=== PATIENT | female | born 1955 | race African-American/Black ===

== ENCOUNTER 2017-09-13 19:31 | Inpatient (IN) | payer MEDICARE, MEDICAID ==
[~2017-09-13] VITALS: Ht 167.6 cm; Wt 67.6 kg
[2017-09-13] MEDS ORDERED: NITROGLYCERIN OINT 1GM/INCH UDPKT TD ONE (22:45)
[2017-09-13] MEDS ORDERED: FUROSEMIDE 40MG/4ML VIAL IV ONE (22:45)
[2017-09-13 23:15] LABS: BASOPHILS % 0.7 % (0.0-2.0); EOSINOPHILS % 1.3 % (0.0-5.0); HEMATOCRIT. 33.4 % (36.0-48.0); HEMOGLOBIN. 11.1 g/dL (12.0-16.0); LYMPHOCYTES % 24.7 % (20.0-50.0); MEAN CORPUSCULAR HEMOGLOBIN 29.9 pg (28.0-32.0); MEAN CORPUSCULAR VOLUME 89.8 fL (81.0-99.0); MEAN PLATELET VOLUME 11.5 fl (7.4-10.4); NEUTROPHILS % 61.3 % (40.0-76.0); PLATELET 201 x1000/uL (130-400); RED BLOOD CELL COUNT 3.72 mill/uL (4.2-5.4)
[2017-09-13 23:19] LABS: CHLORIDE 108 mEq/L (98-107)
[2017-09-13 23:21] LABS: CARBON DIOXIDE 28 mEq/L (21-32)
[2017-09-14] MEDS ORDERED: ASPIRIN 81MG TABLET PO ONE (00:45)
[2017-09-14] MEDS ORDERED: DIPHENHYDRAMINE 50MG/ML VIAL IV PRN (05:30)
[2017-09-14] MEDS ORDERED: DOCUSATE SODIUM 100MG CAPSULE PO PRN (05:30)
[2017-09-14] MEDS ORDERED: MORPHINE SULFATE 2 MG/ML CPJ (NOT FOR IM USE) IV PRN (05:30)
[2017-09-14] MEDS ORDERED: MAGNESIUM/ALUMINUM HYDROXIDE/SIMETHICONE 30ML UDC PO PRN (05:30)
[2017-09-14] MEDS ORDERED: ONDANSETRON HCL 4MG/2ML VIAL IV PRN (05:30)
[2017-09-14] MEDS ORDERED: IPRATROPIUM/ALBUTEROL 0.5-3(2.5)MG/3ML NEB INH PRN (05:30)
[2017-09-14] MEDS ORDERED: ACETAMINOPHEN 325MG TABLET PO PRN (05:30)
[2017-09-14] MEDS ORDERED: GUAIFENESIN 200MG/10ML SUGAR FREE UDC PO PRN (05:30)
[2017-09-14 05:53] VITALS: BP 178/58
[2017-09-14] MEDS ORDERED: DEXTROSE 50% WATER 50ML SYRINGE IV PRN (06:00)
[2017-09-14] MEDS ORDERED: LORAZEPAM 0.5MG TABLET PO PRN (06:45)
[2017-09-14] MEDS: CLONIDINE 0.1MG TABLET PO PRN (06:45)
[2017-09-14] MEDS: BLOOD SUGAR DIAGNOSTIC STRIP TEST SCH ×4 (06:49→21:43)
[2017-09-14] MEDS: INSULIN LISPRO 100 UNITS/ML SUBCUT SCH ×4 (06:52→21:49)
[2017-09-14 06:54] VITALS: BP 178/58
[2017-09-14 08:00] VITALS: BP 147/65
[2017-09-14] MEDS ORDERED: NA PHOS,M-B/NA PHOS,DI-BA ENEMA 118ML PR PRN (09:00)
[2017-09-14] MEDS: ASPIRIN 81MG EC TABLET PO SCH (09:49)
[2017-09-14] MEDS: FUROSEMIDE 40MG/4ML VIAL IV SCH (09:49)
[2017-09-14] MEDS: ENOXAPARIN 40MG/0.4ML SYR SUBCUT SCH (09:53)
[2017-09-14] MEDS: AMLODIPINE 2.5MG TABLET PO SCH (09:54)
[2017-09-14 10:33] LABS: TROPONIN I 0.22 ng/mL (0.00-0.04)
[2017-09-14 12:00] VITALS: BP 201/75
[2017-09-14] MEDS: CLONIDINE 0.1MG TABLET PO SCH ×2 (12:28→21:49)
[2017-09-14 16:00] VITALS: BP 170/69
[2017-09-14] MEDS: HYDROCODONE/APAP 7.5/325MG 1 TAB TABLET PO PRN (17:06)
[2017-09-14] MEDS ORDERED: ATOR20TA65 PO (17:50)
[2017-09-14] MEDS ORDERED: INSLIS SUBCUT (17:50)
[2017-09-14] MEDS ORDERED: MONT10TA24 PO (17:50)
[2017-09-14] MEDS ORDERED: INSU100I28 SQ ×2 (17:50)
[2017-09-14] MEDS ORDERED: ASPI-986 PO (17:50)
[2017-09-14] MEDS ORDERED: FURO20TA4 PO (17:50)
[2017-09-14] MEDS ORDERED: INHALER (17:50)
[2017-09-14] MEDS ORDERED: AMLO10TA80 PO (17:50)
[2017-09-14] MEDS ORDERED: CARV12.545 PO (17:50)
[2017-09-14] MEDS ORDERED: CLON0.1T PO (17:50)
[2017-09-14] MEDS ORDERED: LISI-604 PO (17:50)
[2017-09-14 20:00] VITALS: BP 151/65
[2017-09-15] VITALS: BP 165/56
[2017-09-15] MEDS: HYDROCODONE/APAP 7.5/325MG 1 TAB TABLET PO PRN ×3 (03:51→22:01)
[2017-09-15 04:00] VITALS: BP 163/59
[2017-09-15] MEDS: BLOOD SUGAR DIAGNOSTIC STRIP TEST SCH ×4 (05:40→21:58)
[2017-09-15] MEDS: CLONIDINE 0.1MG TABLET PO SCH ×3 (05:51→22:00)
[2017-09-15] MEDS: INSULIN LISPRO 100 UNITS/ML SUBCUT SCH ×4 (05:51→21:00)
[2017-09-15 07:27] LABS: BASOPHILS % 0.5 % (0.0-2.0); EOSINOPHILS % 2.2 % (0.0-5.0); HEMATOCRIT. 31.1 % (36.0-48.0); HEMOGLOBIN. 10.2 g/dL (12.0-16.0); LYMPHOCYTES % 32.7 % (20.0-50.0); MEAN CORPUSCULAR HEMOGLOBIN 29.5 pg (28.0-32.0); MEAN CORPUSCULAR VOLUME 90.1 fL (81.0-99.0); MEAN PLATELET VOLUME 12.2 fl (7.4-10.4); MONOCYTES % 10.9 % (2.0-8.0); NEUTROPHILS % 53.7 % (40.0-76.0); PLATELET 193 x1000/uL (130-400); RED BLOOD CELL COUNT 3.45 mill/uL (4.2-5.4); RED CELL DISTRIBUTION WIDTH 13.9 % (11.6-14.6)
[2017-09-15 07:50] LABS: CHLORIDE 105 mEq/L (98-107)
[2017-09-15 08:00] VITALS: BP 155/67
[2017-09-15 08:03] LABS: CARBON DIOXIDE 28 mEq/L (21-32); HDL CHOLESTEROL 65 mg/dL (40-59); LDL CHOLESTEROL 99 mg/dL (5-100); T4 FREE 0.96 ng/dL (0.76-1.46); TROPONIN I 0.18 ng/mL (0.00-0.04)
[2017-09-15] MEDS: FUROSEMIDE 40MG/4ML VIAL IV SCH (09:36)
[2017-09-15] MEDS: ENOXAPARIN 40MG/0.4ML SYR SUBCUT SCH (09:37)
[2017-09-15] MEDS: ASPIRIN 81MG EC TABLET PO SCH (09:37)
[2017-09-15] MEDS: AMLODIPINE 2.5MG TABLET PO SCH (09:37)
[2017-09-15 12:00] VITALS: BP 167/57
[2017-09-15 16:00] VITALS: BP 163/73
[2017-09-15 20:00] VITALS: BP 158/68
[2017-09-16] VITALS: BP 130/70
[2017-09-16 04:00] VITALS: BP 169/55
[2017-09-16] MEDS: BLOOD SUGAR DIAGNOSTIC STRIP TEST SCH ×4 (05:51→21:18)
[2017-09-16] MEDS: CLONIDINE 0.1MG TABLET PO SCH ×3 (05:52→21:16)
[2017-09-16] MEDS: INSULIN LISPRO 100 UNITS/ML SUBCUT SCH ×4 (05:54→21:55)
[2017-09-16 07:11] LABS: BASOPHILS % 0.6 % (0.0-2.0); EOSINOPHILS % 2.4 % (0.0-5.0); HEMATOCRIT. 33.8 % (36.0-48.0); LYMPHOCYTES % 36.4 % (20.0-50.0); MEAN CORPUSCULAR HEMOGLOBIN 29.3 pg (28.0-32.0); MEAN CORPUSCULAR VOLUME 89.6 fL (81.0-99.0); MEAN PLATELET VOLUME 12.4 fl (7.4-10.4); MONOCYTES % 10.2 % (2.0-8.0); NEUTROPHILS % 50.4 % (40.0-76.0); PLATELET 203 x1000/uL (130-400); RED BLOOD CELL COUNT 3.77 mill/uL (4.2-5.4); RED CELL DISTRIBUTION WIDTH 13.5 % (11.6-14.6)
[2017-09-16 08:00] VITALS: BP 166/63
[2017-09-16] MEDS: FUROSEMIDE 40MG/4ML VIAL IV SCH (08:38)
[2017-09-16] MEDS: ENOXAPARIN 40MG/0.4ML SYR SUBCUT SCH (08:38)
[2017-09-16] MEDS: ASPIRIN 81MG EC TABLET PO SCH (08:38)
[2017-09-16] MEDS: CLONIDINE 0.1MG TABLET PO PRN (08:39)
[2017-09-16] MEDS: AMLODIPINE 2.5MG TABLET PO SCH (08:39)
[2017-09-16] MEDS ORDERED: INSULIN LISPRO 100 UNITS/ML SUBCUT NR (11:45)
[2017-09-16 12:00] VITALS: BP 155/65
[2017-09-16 16:00] VITALS: BP 129/49
[2017-09-16 20:00] VITALS: BP 165/70
[2017-09-16] MEDS: HYDROCODONE/APAP 7.5/325MG 1 TAB TABLET PO PRN (21:51)
[2017-09-17] VITALS: BP 166/79
[2017-09-17] MEDS: BLOOD SUGAR DIAGNOSTIC STRIP TEST SCH ×2 (06:02→11:12)
[2017-09-17 06:16] VITALS: BP 156/75
[2017-09-17] MEDS: CLONIDINE 0.1MG TABLET PO SCH ×2 (06:27→13:40)
[2017-09-17] MEDS: HYDROCODONE/APAP 7.5/325MG 1 TAB TABLET PO PRN (06:28)
[2017-09-17] MEDS: INSULIN LISPRO 100 UNITS/ML SUBCUT SCH ×2 (06:31→11:38)
[2017-09-17 08:00] VITALS: BP 143/57
[2017-09-17 08:21] LABS: BASOPHILS % 0.5 % (0.0-2.0); HEMATOCRIT. 33.3 % (36.0-48.0); HEMOGLOBIN. 10.9 g/dL (12.0-16.0); LYMPHOCYTES % 31.4 % (20.0-50.0); MEAN CORPUSCULAR HEMOGLOBIN 29.2 pg (28.0-32.0); MEAN CORPUSCULAR VOLUME 89.4 fL (81.0-99.0); MEAN PLATELET VOLUME 11.8 fl (7.4-10.4); MONOCYTES % 9.4 % (2.0-8.0); NEUTROPHILS % 55.7 % (40.0-76.0); PLATELET 201 x1000/uL (130-400); RED BLOOD CELL COUNT 3.73 mill/uL (4.2-5.4); RED CELL DISTRIBUTION WIDTH 13.8 % (11.6-14.6)
[2017-09-17] MEDS: ASPIRIN 81MG EC TABLET PO SCH (08:24)
[2017-09-17] MEDS: AMLODIPINE 2.5MG TABLET PO SCH (08:24)
[2017-09-17] MEDS: ENOXAPARIN 40MG/0.4ML SYR SUBCUT SCH (08:24)
[2017-09-17] MEDS: FUROSEMIDE 40MG/4ML VIAL IV SCH (08:24)
[2017-09-17 12:00] VITALS: BP 149/66
[2017-09-17 12:47] VITALS: BP 149/66
== END 2017-09-17 16:08 | DRG 291 ==
LOC: ER 20:37 → 5WST 09-14 00:43 → EDBEDREQ 09-14 01:55 → EDBEDREQTM 09-14 01:55 → ENRESERV 09-14 03:07 → 5WST 09-14 06:32
PROVIDERS: ADMIT Internal Medicine; ATTEND Internal Medicine
DX: I13.0 Hypertensive heart and chronic kidney disease with heart failure and stage 1 through stage 4 chronic kidney disease, or unspecified chronic kidney disease (principal); N17.0 Acute kidney failure with tubular necrosis; E46 Unspecified protein-calorie malnutrition; N17.9 Acute kidney failure, unspecified; E11.22 Type 2 diabetes mellitus with diabetic chronic kidney disease; I27.20 Pulmonary hypertension, unspecified; I50.9 Heart failure, unspecified; F17.200 Nicotine dependence, unspecified, uncomplicated; I25.10 Atherosclerotic heart disease of native coronary artery without angina pectoris; J44.9 Chronic obstructive pulmonary disease, unspecified; N18.9 Chronic kidney disease, unspecified; Z79.4 Long term (current) use of insulin; Z79.82 Long term (current) use of aspirin; Z79.899 Other long term (current) drug therapy; Z98.891 History of uterine scar from previous surgery; Z71.6 Tobacco abuse counseling; Z68.24 Body mass index [BMI] 24.0-24.9, adult
CPT/HCPCS: 36415; 71010; 80048; 80053; 80061; 82962; 83880; 84439; 84443; 84484; 85025; 93005; 93306; 93970; 96372; 96374; 99285; A6261; J1650; J1815; J1940; J2270; A4315